=== PATIENT | female | born 1940 | race Caucasian/White ===

== ENCOUNTER → 2016-12-03 | Outpatient (CLI) | payer MEDICARE, BC ==
[2016-12-03 12:06] LABS: Blood Urea Nitrogen 21 mg/dL (7-17); Non-African American GFR(MDRD) >60 (>60 ml/min/1.73 sqM)
--- NOTE | 2016-12-03 14:19 | CT ---
EXAMINATION TYPE: CT ChestAbdPelvis w con DATE OF EXAM: 12/03/2016 1:13 PM COMPARISON: CT CAP September 03, 2016 HISTORY: Ovarian CA progress study. CT DLP: 1028.1 mGycm. Automated Exposure Control for Dose Reduction was Utilized. CONTRAST: CT scan of the thorax, abdomen and pelvis is performed with oral and with IV Contrast, patient inject ed with 100 mL of Omnipaque 300. FINDINGS: LUNGS: The lungs are grossly clear, there is no new concerning parenchymal mass or nodule identified. There is bibasilar linear scarring redemonstrated. There is no pleural effusion or pneumothorax see n. The tracheobronchial tree is patent. MEDIASTINUM: There are no greater than 1 cm noncalcified hilar or mediastinal lymph nodes. There are stable calcified subcentimeter subcarinal lymph nodes noted. No pericardial effusion is seen. Hear t size is stable and upper limits of normal. Coronary artery calcification is redemonstrated. OTHER: No additional significant abnormality is seen. LIVER/GB: No significant abnormality is appreciated. PANCREAS: No significant abnormality is seen. SPLEEN: No significant abnormality is seen. ADRENALS: No significant abnormality is seen. KIDNEYS: Nondependent air in bladder is presumed product of recent Samson catheterization, clinical co rrelation advised otherwise other etiologies such as fistula or gas-forming infection need to be cons idered. Small calculi inferiorly in bladder are redemonstrated. BOWEL: There is stable small to moderate size hiatal hernia. With oral contrast reaches level of the hepatic flexure making evaluation of distal bowel slightly suboptimal. No suspicious small or large b owel dilatation is seen. GENITAL ORGANS: Uterus is surgically absent. LYMPH NODES: There is new enlarged soft tissue lesion corresponding to the cystic 1.4 cm lesion of co ncern left adnexa on prior study, it measures 3.4 x 2.4 cm on current study. It is along the inferior aspect of the left ovarian vein. In postmenopausal female local recurrence or adenopathy is strongly suspected. OSSEOUS STRUCTURES: Metallic hardware from right hip arthroplasty is redemonstrated and felt stable c ausing streak artifact limiting evaluation of pelvic structures. S-shaped scoliosis is again seen. Mi ld to moderate late subacute or chronic compression fracture superior L2 endplate is redemonstrated. Moderate multilevel spurring of thoracolumbar spine is again seen. Spinal canal stenosis L1-L2 level on axial image 60 is stable. OTHER: No significant additional abnormality is seen. IMPRESSION: 1. Enlarging left adnexal/pelvic lesion strongly suspicious for local neoplastic recurrence.
== END ==
LOC: RADCTMAIN 11:01
PROVIDERS: ATTEND Internal Medicine Hematology & Oncology
DX: Z03.89 Encounter for observation for other suspected diseases and conditions ruled out (principal); N94.9 Unspecified condition associated with female genital organs and menstrual cycle; C56.2 Malignant neoplasm of left ovary; Z88.1 Allergy status to other antibiotic agents
CPT/HCPCS: 82565; 84520; 71260; 74177; 36415; Q9967

== ENCOUNTER → 2017-08-13 | Outpatient (CLI) | payer MEDICARE, BC ==
[2017-08-13 11:30] LABS: Blood Urea Nitrogen 29 mg/dL (7-17); Non-African American GFR(MDRD) >60 (>60 ml/min/1.73 sqM)
--- NOTE | 2017-08-13 15:00 | CT ---
EXAMINATION TYPE: CT ChestAbdPelvis w con DATE OF EXAM: 08/13/2017 COMPARISON: Prior CT chest abdomen pelvis 12/03/2016 HISTORY: ovarian cancer CT DLP: 1142.70 mGycm Automated exposure control for dose reduction was used. CONTRAST: CT scan of the chest, abdomen and pelvis is performed with Oral Contrast and with IV Contrast, patien t injected with 100 ml mL of Omnipaque 300. FINDINGS: LUNGS: The lungs are grossly clear, there is no concerning parenchymal mass or nodule identified. T here is no pleural effusion or pneumothorax seen. The tracheobronchial tree is patent. Posterior lawson phragmatic hernias containing fat as on prior exam. There are coronary artery calcifications. MEDIASTINUM: There are no greater than 1 cm hilar or mediastinal lymph nodes. No pericardial effusi on is seen. There is a small hiatal hernia suspected. There is evidence of old granulomatous disease. AORTA: Ascending aorta is dilated as on prior exam, descending aorta is tortuous.. OTHER: No additional significant abnormality is seen. LIVER/GB: Liver shows low attenuation as on prior exam, consider hepatic steatosis, gallbladder is no rmal. PANCREAS: No significant abnormality is seen. SPLEEN: No significant abnormality is seen. ADRENALS: No significant abnormality is seen. KIDNEYS: Cystic foci are associated with the right kidney. REPRODUCTIVE ORGANS: No longer seen and there is a surgical clip in the left hemipelvis BOWEL: No significant abnormality is seen. FREE AIR: No Free Air visible. ASCITES: None seen. RETROPERITONEAL ADENOPATHY: No retroperitoneal adenopathy is seen. LYMPH NODES: No greater than 1 cm abdominal or pelvic lymph nodes are appreciated. URINARY BLADDER: No significant abnormality is seen. PELVIC ADENOPATHY: None visualized. Small umbilical hernia contains fat. OSSEOUS STRUCTURES: Wedge compression deformity at L2 is stable. Postop change noted to the right hi p which causes some streak artifact. IMPRESSION: Postop changes. Interval removal of patient's left ovary. Additional nonspecific findings above.
== END | disposition home or self-care (01) ==
LOC: RADCTMAIN 10:50
PROVIDERS: ATTEND Internal Medicine Hematology & Oncology
DX: C56.2 Malignant neoplasm of left ovary (principal); Z88.1 Allergy status to other antibiotic agents; Z98.890 Other specified postprocedural states
CPT/HCPCS: 82565; 84520; 71260; 74177; 36415; Q9967

== ENCOUNTER → 2018-03-21 | Outpatient (CLI) | payer MEDICARE, BC ==
[2018-03-21 08:21] LABS: Blood Urea Nitrogen 29 mg/dL (7-17)
--- NOTE | 2018-03-21 11:53 | CT ---
EXAMINATION TYPE: CT ChestAbdPelvis w con DATE OF EXAM: 03/21/2018 COMPARISON: CT chest abdomen and pelvis August 13, 2017 and older exams back through February 29, 2016. PET CT exam September 15, 2016. HISTORY: follow up to ovarian CA, completed chemotherapy May 2017. CT DLP: 1092.2 mGycm. Automated Exposure Control for Dose Reduction was Utilized. CONTRAST: CT scan of the thorax, abdomen and pelvis is performed with IV Contrast, patient injected with 100 mL of Isovue 300. FINDINGS: LUNGS: There is left greater than right bibasilar linear scarring and/or atelectasis redemonstrated. There is no suspicious parenchymal nodule or mass. No pleural effusion or pneumothorax is seen bilate rally. Tracheobronchial tree is patent. Small fat-containing posterior lateral Bochdalek type hernia right lung axial image 59 is redemonstrated. MEDIASTINUM: There are no greater than 1 cm noncalcified hilar or mediastinal lymph nodes. There are prominent calcified subcarinal and to lesser degree right hilar lymph nodes redemonstrated. No cardi omegaly or pericardial effusion is seen. Coronary artery calcification is redemonstrated which is no jackie marker for coronary artery disease. Ascending aorta measures up to 4.5 cm in diameter axial image 27, not significantly changed from prior study accounting for technical differences. OTHER: No additional significant abnormality is seen. LIVER/GB: No significant abnormality is appreciated. PANCREAS: No significant abnormality is seen. SPLEEN: No significant abnormality is seen. ADRENALS: No significant abnormality is seen. KIDNEYS: Subcentimeter low dense lesion posteriorly right kidney upper to mid pole level axial image 27 is too small to further characterize but presumed benign. BOWEL: Stable small hiatal hernia is present. The oral contrast reaches level of sigmoid colon. No ibanez spicious dilatation is seen. GENITAL ORGANS: Uterus is surgically absent. Surgical clips in left pelvis are redemonstrated. Ovarie s are likely surgically removed. LYMPH NODES: No greater than 1cm abdominal or pelvic lymph nodes are appreciated. OSSEOUS STRUCTURES: Metallic hardware from right hip arthroplasty causes streak artifact limiting zaira luation of pelvic structures. Osseous structures are demineralized. Mild to moderate chronic compress ion fracture L2 level is redemonstrated. There is moderate disc space narrowing with vacuum disc phen omenon L3-L4 and L4-L5 levels. There is moderate multilevel spurring in the mid thoracic spine. Sligh t S-shaped scoliosis is redemonstrated. OTHER: There is mild atherosclerotic change and ectatic course of the abdominal aorta redemonstrated. Vertical subcutaneous scar from umbilicus extends inferiorly. There is oval well-circumscribed parti ally calcified skin base 1.5 cm lesion axial image 98 favoring dermatologic benign etiology stable fr om prior. Stable tiny fat-containing umbilical hernia. IMPRESSION: Postsurgical changes to pelvis redemonstrated. No suspicious new mass or adenopathy is se en to suggest neoplastic recurrence.
== END | disposition home or self-care (01) ==
LOC: RADCTMAIN 07:46
PROVIDERS: ATTEND Internal Medicine Hematology & Oncology
DX: C56.2 Malignant neoplasm of left ovary (principal); Z98.890 Other specified postprocedural states; Z88.1 Allergy status to other antibiotic agents
CPT/HCPCS: 82565; 84520; 71260; 74177; 36415; Q9967

== ENCOUNTER 2018-05-28 06:00 | Day surgery (SDC) | payer MEDICARE, BC ==
[2018-05-26 08:29] VITALS: BMI 31.2
[~2018-05-28 06:00] MED LIST: DEXAMETHASONE SOD PHOSPHATE 10 MG/ML 1 ML VIAL IV ONE; LIDOCAINE 1% 20 ML VIAL (10MG/ML) FOR IV START INTRADERMA PRN; MIDAZOLAM 2 MG/2 ML VIAL IV PRN; ONDANSETRON 4 MG/2 ML VIAL IVP ONE; ceFAZolin IN SWFI 2 GM/20 ML SYRINGE IVP ONE; fentaNYL (PF) 50 MCG/ML 2 ML AMP IV PRN; fentaNYL (PF) 50 MCG/ML 20 ML VIAL IVP PRN
[2018-05-28] MEDS: LACTATED RINGERS 1,000 ML IV SCH ×3 (06:36→12:48)
[2018-05-28] MEDS ORDERED: HYDROmorphone (PF) 1 MG/ML ONE (07:33)
[2018-05-28] MEDS ORDERED: ePHEDrine SULFATE/0.9% NACL/PF 50 MG/5 ML SYRINGE IV ONE (07:33)
[2018-05-28] MEDS ORDERED: MIDAZOLAM 2 MG/2 ML VIAL ONE (07:33)
[2018-05-28] MEDS ORDERED: GLYCOPYRROLATE 0.2 MG/ML 2 ML VIAL ONE (07:33)
[2018-05-28] MEDS ORDERED: PROPOFOL 10 MG/ML 20 ML VIAL IV ONE (07:33)
[2018-05-28] MEDS ORDERED: LIDOCAINE 1% INJ 10MG/ML (20 ML MDV) ONE (07:33)
[2018-05-28] MEDS ORDERED: ROCURONIUM BROMIDE 10 MG/ML 10 ML VIAL IV ONE (07:33)
[2018-05-28] MEDS ORDERED: NEOSTIGMINE 1 MG/ML 10 ML VIAL ONE (07:33)
[2018-05-28] MEDS ORDERED: fentaNYL (PF) 50 MCG/ML 2 ML AMP ONE (07:33)
[2018-05-28] MEDS ORDERED: LACTATED RINGERS 1,000 ML IV ONE ×2 (09:04)
[2018-05-28] MEDS ORDERED: DIAZEPAM 5 MG TAB PO PRN (11:05)
[2018-05-28] MEDS ORDERED: NALOXONE 0.4 MG/ML 1 ML VIAL IV PRN (11:05)
[2018-05-28] MEDS ORDERED: HYDROmorphone 1 MG/ML 1 ML SYRINGE IVP PRN (11:05)
[2018-05-28] MEDS ORDERED: MAGNESIUM HYDROXIDE 2,400 MG/10 ML CUP PO PRN (11:05)
[2018-05-28] MEDS ORDERED: HYDROcodone/APAP 5-325MG 1 EACH TAB PO PRN (11:05)
[2018-05-28] MEDS ORDERED: ONDANSETRON 4 MG/2 ML VIAL IVP PRN (11:05)
--- NOTE | 2018-05-28 11:39 | P.OP ---
Date of Procedure: 05/28/18 Preoperative Diagnosis: 1. 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 Left hypermobile, recurrent hallux vaglus 3. Left Achilles tendon contracture Postoperative Diagnosis: Same Procedure(s) Performed: 1. Left double arthrodesis (left subtalar and talonavicular joint fusion) 2. Left modified Lapidus procedure 3. Left percutaneous tendo Achilles lengthening (triple hemisection) 4. Application of short-leg splint by physician, left leg Anesthesia: GETA Surgeon: Zachary Nguyen Estimated Blood Loss (ml): 50 IV fluids (ml): 1,400 Pathology: none sent Condition: stable Disposition: PACU Indications for Procedure: The patient is a previously healthy 77-year-old female who is her long-standing history of problems with her left foot. She previously had correction of a hallux valgus deformity by another provider had recurrence of her deformity. She also had a progressively worsening flatfoot deformity. She was initially managed nonsurgically with activity modification, orthotics, shoe modification, and bracing. She had increasing pain that was refractory to nonsurgical treatment and she requested surgery. Due to the patient's age and underlying degree of deformity I recommended correcting her flexible flatfoot deformity with a double arthrodesis of the subtalar and talonavicular joint and correcting her hypermobile hallux valgus with a modified Lapidus procedure. We discussed potential risks and complications of surgery including but not limited to risk of anesthesia, risk of superficial infection, risk of deep infection, risk of damage to local blood vessels or nerves, risk of nonunion of the fusion site, risk of malunion of the fusion sites, risk of under correction , risk of overcorrection, risk of recurrent deformity, risk of intraoperative fracture, risk of postoperative fracture, risk of symptomatic hardware, risk of inability to regain preinjury level of function, risk of chronic pain, risk of chronic swelling, risk of DVT, risk of PE, risk of other medical complications, risk of generalized satisfaction with surgery, and possibly loss of life or limb. The patient voiced understanding of this and provided her verbal and written consent to go forward with surgery. Description of Procedure: The patient was identified in preoperative holding and the correct left leg was marked with my initials. I reviewed the consent form with the patient and all of her questions were answered. The patient was then brought back to the operating room. She was positioned on the OR table where general anesthetic and preoperative and lateral x-ray administered. All bony prominences are well- padded. A tourniquet was applied to the proximal aspect of the left leg. A bump was placed under the left buttock internally rotating the leg to neutral. A bump was placed under the left leg to facilitate imaging. The left leg was then prepped and draped in the standard sterile fashion. Prior to starting surgery timeout was performed identifying the correct patient, operative extremity, and procedure. The patient's leg was then elevated exsanguinated with an Esmarch bandage and the tourniquet was inflated to 250 mmHg. I began by performing a [place] triple hemisection tendo Achilles lengthening. 3 stab incisions were made 2 cm apart starting just proximal to the Achilles insertion on the calcaneus. The medial fibers of the Achilles tendon were released proximally and distally in the lateral fibers of the Achilles tendon were released in the middle incision. A gentle dorsiflexion force was applied to the ankle and there was a significant increase in passive dorsiflexion. Attention was then turned the subtalar joint. A short oblique incision was marked out starting at the distal tip of the fibula extending distally in line with the fourth ray. Dissection was carried down carefully to the subcutaneous joint. The capsule the subtalar joint was exposed and opened. The posterior and middle facets of the subtalar joint were then prepared for fusion by removing articular cartilage with a series of curettes and osteotomes. The subchondral bone was perforated with a 2.5 mm drill bit help facilitate fusion. Attention was then turned to the talonavicular joint. A longitudinal incision was centered over the dorsal aspect of the foot starting just proximal to the talonavicular joint extending distally over the first tarsometatarsal joint. Dissection was carried down to the talonavicular joint which was exposed. K wires were placed and a distraction device was used to open the joint. Articular cartilage from the talar head and navicular were removed with a series of osteotomes and curettes. The joint was copiously irrigated. The exposed bone was perforated with a 2.5 mm drill bit help facilitate fusion. After both joints and prepared a were packed with a combined mixture of augment and crushed cancellous allograft. The subtalar joint was then gently reduced and held with a 625 K wire through the anterior process of the calcaneus into the talar head. The reduction was verified clinically and radiographically. I then placed K wires through the heel up into the body and neck of the talus. They were measured, drilled, countersunk, and cannulated partially threaded screws were placed across the subtalar joint generating excellent compression. The K wire was then placed percutaneously through the medial navicular tuberosity into the talus. The position of the joint and K wire was verified and then a percutaneously placed a partially threaded, cannulated 5.0 mm screw was placed generating excellent compression. I then proceeded to place two 4.0 millimeter partially threaded cannulated screws across the talonavicular joint. Next Attention was then turned to the first tarsometatarsal joint. The capsule over the first TMT joint was exposed and opened. The cartilage from the base of the first metatarsal and medial cuneiform was removed with a osteotome and curet. A small wafer of bone was removed from the lateral aspect of the medial cuneiform. The distal medial incision over the first MTP joint was opened. The joint was distracted and the lateral capsule was released. The 1-2 intermetatarsal joint space was reduced and K wires were placed across the first TMT joint to hold the reduction. A precontoured plate was applied over the dorsal aspect of the first TMT joint. Nonlocking screws were placed distally into the metatarsal. A lag screw was placed through the plate into the medial cuneiform. 2 nonlocking screws were then placed into the medial cuneiform. At this point all wounds were copiously irrigated and final fluoroscopic images were obtained. The capsule the medial first MTP joint was imbricated to help further correct the hallux valgus deformity. The capsule over the talonavicular and first tarsometatarsal joint was closed with a running 2-0 Vicryl. The capsule over the subtalar joint was closed with a running 0 Vicryl. The deep subcutaneous layer was closed with interrupted 2-0 Vicryl. The subtalar and dorsal midfoot incision were closed with amber. The medial first MTP joint and plantar heel wound were closed with nylon sutures. The tourniquet time was let down for total tourniquet time of 120 minutes. I verified that all instrument, sponge, and sharp counts were correct. Sterile dressings consisting of Betadine soaked Adaptic, 4 x 4, web roll were applied. A well-padded bulky Rico splint was placed with the ankle in neutral. The patient was then awoken from her anesthetic, transferred to a gurney, and brought to PACU of the procedure well. Plan: The patient is going to be admitted for IV antibiotics, and internal medicine consult, and discharge planning. She is to receive 2 doses of postoperative antibiotics. She is to be strictly nonweightbearing on her operative extremity. She will need DVT prophylaxis with Lovenox on the hospital and is to be discharged home on aspirin.
[2018-05-28] MEDS ORDERED: ROPIVACAINE 5 MG/ML 30 ML VIAL MISCELLANE ONE (11:57)
--- NOTE | 2018-05-28 12:58 | P.ONQ ---
Anesthesiology Proc Note - PNB - Peripheral Nerve Block Performed Left Popliteal Single Time Out Performed: Yes Procedure Start Time: 12:01 Procedure Stop Time: 12:06 Indication: Acute Post-Operative Pain, Requested by physician Specifically requested for management of pain by DrMahesh: Zachary Nguyen Sedation Type: Awake Preparation: Sterile Prep Position: Supine Catheter: None Needle Types: On-Q Needle Size: 100mm (4") Needle Gauge: 20 Technique: Ultrasound Injectate: 0.5% Ropivacaine (see comment for volume) (30cc) Blood Aspirated: No Pain Paresthesia on Injection Noted: No Resistance on Injection: Normal Events: Uneventful and Well Tolerated
--- NOTE | 2018-05-28 13:28 | P.CONS ---
History of Present Illness - Reason for Consult Consult date: 05/28/18 Medical management Requesting physician: Zachary Nguyen - Chief Complaint Adult acquired left flatfoot - History of Present Illness This is a 77-year-old female patient of Dr. Ortiz. Patient presented to the hospital for an elective left double arthrodesis, left modified Lapidus procedure and left percutaneous tendo Achilles lengthening. 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 Patient has a past known medical history of essential hypertension, hyperlipidemia and ovarian cancer. Patient denies any significant cardiac history. . Per pain services patient also has a peripheral nerve block in the left popliteal placed. Patient is currently resting comfortably in bed. Patient denies pain at this time. Patient denies chest pain or shortness of breath. Denies nausea vomiting or diarrhea. Denies any urinary burning or frequency. Review of Systems Please refer to HPI otherwise unremarkable Past Medical History Past Medical History: Cancer, Hyperlipidemia, Hypertension, Osteoarthritis (OA) Additional Past Medical History / Comment(s): URINARY LEAKAGE,ovarian cancer with chemo [id number], ovarian cancer with chemo 2016 History of Any Multi-Drug Resistant Organisms: None Reported Past Surgical History: Bladder Surgery, Hysterectomy, Joint Replacement, Orthopedic Surgery Additional Past Surgical History / Comment(s): total knee-isac, bunionectomy and hammer toe left foot, bladder suspension, coaptite injection,BLADDER SURG X 2, RT HIP REPLACEMENT Past Anesthesia/Blood Transfusion Reactions: Postoperative Nausea & Vomiting ( PONV) Smoking Status: Never smoker - Past Family History Father Family Medical History: Cancer Additional Family Medical History / Comment(s): lung Mother Family Medical History: Memory Impairment Additional Family Medical History / Comment(s): alzheimers Medications and Allergies Home Medications Medication Instructions Recorded Confirmed Type Cholecalciferol [Vitamin D3] 5,000 unit PO DAILY 08/06/14 05/26/18 History Lisinopril 40 mg PO DAILY 08/06/14 05/28/18 History Calcium Carbonate/Vitamin D3 1 tab PO DAILY 06/08/15 05/26/18 History [Calcium 600-Vit D3 400 Tablet] Allergies Allergy/AdvReac Type Severity Reaction Status Date / Time levofloxacin [From Levaquin] Allergy "IT Verified 05/26/18 08:17 BOTHERED THE BACK OF MY LEGS" Physical Exam Vitals: Vital Signs Temp Pulse Pulse Resp BP Pulse Ox 05/28/18 13:05 98.1 F 91 18 120/77 91 L 05/28/18 12:15 82 18 102/62 100 05/28/18 12:00 83 18 110/61 100 05/28/18 11:30 84 18 105/60 100 05/28/18 11:15 84 18 105/69 95 05/28/18 10:58 97.3 F L 91 14 109/72 97 05/28/18 06:35 97.7 F 76 16 142/88 95 Intake and Output 05/27/18 05/28/18 05/28/18 22:59 06:59 14:59 Intake Total 200 1600 Output Total 50 Balance 200 1550 Intake: IV 200 1600 Output: Estimated Blood Loss 50 Head normocephalic Neck supple Lungs clear to auscultation bilaterally no wheezing or crackles Heart regular rate and rhythm S1-S2, no rub or gallop Abdomen is soft nontender nondistended positive bowel sounds no hepatosplenomegaly Extremities no edema. Left leg dressing clean dry and intact Neuro alert and orientated to 3 Assessment and Plan Assessment: 1. Adult acquired flat foot deformity of the left foot. Status post left double arthrodesis, left modified Lapidus procedure and percutaneous tendo Achilles lengthening with Dr. Nguyen. Patient also had a peripheral nerve block Placed her pain services. 2. History of essential hypertension. Home medications 3. History of hyperlipidemia 4. History of ovarian cancer DVT prophylaxis Lovenox. GI prophylaxis Pepcid A.M. labs have been ordered Thank you for this consultation we will continue to follow patient throughout stay Time with Patient: Greater than 30 (Greater than 60% of the total time spent in counseling and coordination of care. I performed an examination of the patient and discussed their management with the Nurse Practitioner. I have reviewed the Nurse Practitioner's notes and agree with the documented findings and plan of care)
--- NOTE | 2018-05-28 14:49 | FL ---
Fluoroscopy HISTORY: Fusion 2 minutes 3 seconds fluoroscopy time supplied to the referring clinician. 6 intraoperative C-arm lisa ges document the procedure. See dictated report from orthopedic surgery.
--- NOTE | 2018-05-28 14:52 | XR ---
Limited left foot HISTORY: Fusion 6 intraoperative C-arm images document the procedure.
[2018-05-28] MEDS: ceFAZolin IN SWFI 2 GM/20 ML SYRINGE IVP SCH ×2 (15:09→23:41)
[2018-05-28 19:16] LABS: Basophils % (A) 0 %; Eosinophils % (A) 0 %; HCT 37.6 % (34.0-46.0); HGB 12.2 gm/dL (11.4-16.0); Lymphocytes # (A) 0.4 k/uL (1.0-4.8); Lymphocytes % (A) 6 %; MCH 32.4 pg (25.0-35.0); MCHC 32.5 g/dL (31.0-37.0); MCV 99.7 fL (80.0-100.0); Mean Platelet Volume 6.2; Monocytes # (A) 0.3 k/uL (0-1.0); Monocytes % (A) 4 %; Neutrophils # (A) 7.1 k/uL (1.3-7.7); Neutrophils % (A) 90 %; Platelet Count 201 k/uL (150-450); RBC 3.77 m/uL (3.80-5.40); RDW 12.4 % (11.5-15.5); WBC 7.9 k/uL (3.8-10.6)
[2018-05-28] MEDS ORDERED: SENNOSIDES-DOCUSATE SODIUM 1 EACH TAB PO SCH (21:00)
[2018-05-29] MEDS: HYDROcodone/APAP 5-325MG 1 EACH TAB PO PRN ×2 (05:43→12:28)
[2018-05-29 07:26] LABS: Albumin 3.3 g/dL (3.5-5.0); Calcium 8.9 mg/dL (8.4-10.2); Total Bilirubin 0.8 mg/dL (0.2-1.3)
[2018-05-29 08:17] LABS: Basophils % (A) 0 %; Eosinophils # (A) 0.1 k/uL (0-0.7); Eosinophils % (A) 1 %; HCT 37.6 % (34.0-46.0); HGB 12.1 gm/dL (11.4-16.0); Lymphocytes # (A) 1.2 k/uL (1.0-4.8); Lymphocytes % (A) 16 %; MCH 32.4 pg (25.0-35.0); MCHC 32.3 g/dL (31.0-37.0); MCV 100.5 fL (80.0-100.0); Mean Platelet Volume 7.4; Monocytes # (A) 0.9 k/uL (0-1.0); Monocytes % (A) 12 %; Neutrophils # (A) 5.1 k/uL (1.3-7.7); Neutrophils % (A) 70 %; Platelet Count 160 k/uL (150-450); RBC 3.74 m/uL (3.80-5.40); RDW 12.6 % (11.5-15.5); WBC 7.4 k/uL (3.8-10.6)
[2018-05-29] MEDS: LACTATED RINGERS 1,000 ML IV SCH ×4 (08:17→17:21)
[2018-05-29] MEDS ORDERED: CHOLECALCIFEROL 1,000 UNIT TAB PO SCH (09:00)
[2018-05-29] MEDS ORDERED: ENOXAPARIN 40 MG/0.4 ML SYRINGE SQ SCH (09:00)
[2018-05-29] MEDS ORDERED: LISINOPRIL 20 MG TAB PO SCH (09:00)
[2018-05-29] MEDS ORDERED: FAMOTIDINE 20 MG TAB PO SCH (09:00)
[2018-05-29] MEDS ORDERED: CALCIUM CARB-VIT D 500MG-200UN 1 EACH TAB PO SCH (09:00)
--- NOTE | 2018-05-29 09:40 | P.DS ---
Providers Expected date of discharge: 05/29/18 Attending physician: Zachary Nguyen Consults: 05/28/18 11:08 Consult Physician Routine Consulting Provider: Carolyn Ortiz Consult Reason/Comments: Post op medical management Do you want consulting provider notified?: Yes Primary care physician: Carolyn Ortiz - Discharge Diagnosis(es) (1) Flat foot [pes planus] (acquired), left foot Patient was admitted to the OR on 05/28/2018 to undergo, 1. Left double arthrodesis (left subtalar and talonavicular joint fusion), 2. Left modified Lapidus procedure, 3. Left percutaneous tendo Achilles lengthening (triple hemisection) 4. Application of short-leg splint by physician, left leg. She had failed conservative measures as an outpatient and desired to proceed with elective surgery after given informed consent. She underwent the above procedure which she tolerated well without complication. Postoperative hospital course has remained without complication. On day of discharge she is afebrile, vital signs stable, labs within acceptable ranges, tolerating by mouth meds and diet, voiding without difficulty, positive flatus, denies abdominal pain or calf pain , pain is controlled on oral pain medication and has no new complaints. Wound is benign, neurovascular status is intact, calf is soft and nontender, abdomen soft and nontender. Review of systems is negative for numbness, tingling, fever , chills, chest pain, shortness breath, nausea, vomiting, dizziness, headaches, slurred speech or other Current Visit: Yes Status: Acute Priority: Medium Procedures: 1. Left double arthrodesis (left subtalar and talonavicular joint fusion) 2. Left modified Lapidus procedure 3. Left percutaneous tendo Achilles lengthening (triple hemisection) 4. Application of short-leg splint by physician, left leg Patient Condition at Discharge: Good Plan - Discharge Summary Discharge Rx Participant: No New Discharge Prescriptions: New Aspirin 325 mg PO BID #60 tab Docusate [Colace] 100 mg PO BID #60 capsule HYDROcodone/APAP 7.5-325MG [Igo 7.5-325] 1 - 2 each PO Q6HR PRN #56 tab PRN Reason: Pain No Action Lisinopril 40 mg PO DAILY Cholecalciferol [Vitamin D3] 5,000 unit PO DAILY Calcium Carbonate/Vitamin D3 [Calcium 600-Vit D3 400 Tablet] 1 tab PO DAILY Discharge Medication List Cholecalciferol [Vitamin D3] 5,000 unit PO DAILY 08/06/14 [History] Lisinopril 40 mg PO DAILY 08/06/14 [History] Calcium Carbonate/Vitamin D3 [Calcium 600-Vit D3 400 Tablet] 1 tab PO DAILY 06/14 [History] Aspirin 325 mg PO BID #60 tab 05/29/18 [Rx] Docusate [Colace] 100 mg PO BID #60 capsule 05/29/18 [Rx] HYDROcodone/APAP 7.5-325MG [Igo 7.5-325] 1 - 2 each PO Q6HR PRN #56 tab [Rx] Follow up Appointment(s)/Referral(s): Zachary Nguyen MD [Medical Doctor] - 1 Week Activity/Diet/Wound Care/Special Instructions: maintain splint keep clean and dry nonweightbearing take meds as directed f/u with Dr. Nguyen elevate leg Discharge Disposition: HOME SELF-CARE
--- NOTE | 2018-05-29 10:32 | P.PN ---
Subjective Progress Note Date: 05/29/18 This is a 77-year-old female patient of Dr. Ortiz. Patient presented to the hospital for an elective left double arthrodesis, left modified Lapidus procedure and left percutaneous tendo Achilles lengthening. 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 Patient has a past known medical history of essential hypertension, hyperlipidemia and ovarian cancer. Patient denies any significant cardiac history. . Per pain services patient also has a peripheral nerve block in the left popliteal placed. Patient is currently resting comfortably in bed. Patient denies pain at this time. Patient denies chest pain or shortness of breath. Denies nausea vomiting or diarrhea. Denies any urinary burning or frequency. On 05/29/2018 patient currently alert and oriented 3 resting comfortably in bed. Patient states she is eager to go home. Patient states pain has been well -controlled. Patient denies chest pain or shortness of breath. Denies any urinary burning or frequency. Denies any nausea vomiting or diarrhea Objective - Vital Signs Vital signs: Vital Signs Temp 98.3 F 05/29/18 07:29 Pulse 85 05/29/18 07:29 Resp 14 05/29/18 07:29 BP 113/69 05/29/18 07:29 Pulse Ox 93 L 05/29/18 07:29 Intake & Output 05/28/18 05/29/18 05/29/18 18:59 06:59 18:59 Intake Total 1600 1200 Output Total 50 Balance 1550 1200 Weight 72.575 kg Intake: IV 1600 Intake, IV Titration 800 Amount Lactated Ringers 1,000 ml 800 @ 100 mls/hr IV .Q10H [facility] [place] Rx#:[id number] Oral 400 Output: Estimated Blood Loss 50 Other: Voiding Method Bedside Commode Bedside Commode Bedpan # Voids 3 # Bowel Movements 1 - Exam Head normocephalic Neck supple Lungs clear to auscultation bilaterally no wheezing or crackles Heart regular rate and rhythm S1-S2, no rub or gallop Abdomen is soft nontender nondistended positive bowel sounds no hepatosplenomegaly Extremities no edema. Left leg dressing clean dry and intact Neuro alert and orientated to 3 - Labs CBC & Chem 7: 05/29/18 06:50 05/29/18 06:50 Labs: Abnormal Lab Results - Last 24 Hours (Table) 08/05/28/18 05/29/18 Range/Units 18:55 18:55 06:50 RBC 3.77 L 3.74 L (3.80-5.40) m/uL MCV 100.5 H (80.0-100.0) fL Lymphocytes # 0.4 L (1.0-4.8) k/uL BUN (7-17) mg/dL Total Protein (6.3-8.2) g/dL Albumin (3.5-5.0) g/dL Vitamin D 25-Hydroxy 27.3 L (30.0-100.0) ng/mL 05/29/18 Range/Units 06:50 RBC (3.80-5.40) m/uL MCV (80.0-100.0) fL Lymphocytes # (1.0-4.8) k/uL BUN 19 H (7-17) mg/dL Total Protein 6.0 L (6.3-8.2) g/dL Albumin 3.3 L (3.5-5.0) g/dL Vitamin D 25-Hydroxy (30.0-100.0) ng/mL Assessment and Plan Assessment: 1. Adult acquired flat foot deformity of the left foot. Status post left double arthrodesis, left modified Lapidus procedure and percutaneous tendo Achilles lengthening with Dr. Nguyen. Patient also had a peripheral nerve block Placed her pain services. Per patient pain has been well controlled. Patient will be DC'd home on aspirin 325 twice per Ortho. 2. History of essential hypertension. Home medications 3. History of hyperlipidemia 4. History of ovarian cancer DVT prophylaxis Lovenox. GI prophylaxis Pepcid A.M. labs have been ordered. Labs reviewed Thank you for this consultation we will continue to follow patient throughout stay Anticipate discharge in the next 24 hours per Ortho team I performed an examination of the patient and discussed their management with the Nurse Practitioner. I have reviewed the Nurse Practitioner's notes and agree with the documented findings and plan of care
[2018-05-29] MEDS ORDERED: MULTIVITAMINS, THERA 1 EACH TAB PO SCH (12:00)
[2018-05-29 14:25] VITALS: BP 134/76; PULSE 97; RESP 16; TEMP 98.2
== END 2018-05-29 18:00 | disposition home or self-care (01) ==
LOC: OR 06:00 → 3SUR 10:57 → OR 05-29 18:00
PROVIDERS: ATTEND Orthopaedic Surgery
DX: M21.42 Flat foot [pes planus] (acquired), left foot (principal); M20.12 Hallux valgus (acquired), left foot; M67.02 Short Achilles tendon (acquired), left ankle; M21.612 Bunion of left foot; I10 Essential (primary) hypertension; E78.5 Hyperlipidemia, unspecified; K21.9 Gastro-esophageal reflux disease without esophagitis; E66.01 Morbid (severe) obesity due to excess calories; Z68.31 Body mass index [BMI] 31.0-31.9, adult; Z85.43 Personal history of malignant neoplasm of ovary; Z79.899 Other long term (current) drug therapy; Z88.1 Allergy status to other antibiotic agents
CPT/HCPCS: 80053; 85025 ×2; 82306; 73620; 28725; 28740; 28735; 27685; 64450; C1713 ×2; C1762; J2250; J1100; J2710; J2405; J2001; J1650; J3010; J1170; J2795; J2704; J0690

== ENCOUNTER → 2020-03-30 | Outpatient (CLI) | payer MEDICARE, BC ==
--- NOTE | 2020-03-31 11:30 | MM ---
Reason for exam: screening (asymptomatic). Last mammogram was performed 4 years and 8 months ago. History: Patient is postmenopausal and has history of ovarian cancer at age 74. Family history of breast cancer in maternal aunt. Physical Findings: A clinical breast exam by your physician is recommended on an annual basis and results should be correlated with mammographic findings. MG 3D Screening Mammo W/Cad Bilateral CC, MLO, and XCCL view(s) were taken. Prior study comparison: August 04, 2015, bilateral MG screening mammo w CAD. June 29, 2013, bilateral digital screening mammo w/CAD. The breast tissue is heterogeneously dense. This may lower the sensitivity of mammography. Stable benign calcifications. There is no discrete abnormality. No significant changes when compared with prior studies. ASSESSMENT: Benign, BI-RAD 2 RECOMMENDATION: Routine screening mammogram of both breasts in 1 year.
== END | disposition home or self-care (01) ==
LOC: RADMAMWWP 14:06
PROVIDERS: ATTEND Family Medicine
DX: Z12.31 Encounter for screening mammogram for malignant neoplasm of breast (principal)
CPT/HCPCS: 77063; 77067

== ENCOUNTER → 2020-04-08 | Outpatient (CLI) | payer MEDICARE, BC ==
[2020-04-08 16:54] LABS: African American GFR (CKD) >90 (>60 ml/min/1.73 sqM); Blood Urea Nitrogen 23 mg/dL (7-17); Non-African American GFR(CKD) 79 (>60 ml/min/1.73 sqM)
--- NOTE | 2020-04-09 07:47 | CT ---
EXAMINATION TYPE: CT abdomen pelvis w con DATE OF EXAM: 04/08/2020 COMPARISON: 03/21/2018 HISTORY: Abdominal pain and distension. CT DLP: 963 mGycm CONTRAST: CT scan of the abdomen and pelvis is performed with Oral Contrast and with IV Contrast, patient injec jackie with 100 mL of Isovue 300. FINDINGS: LUNG BASES-: No visible nodule. No infiltrate. LIVER/GB: No calcified gallstones. No space occupying hepatic lesion. Biliary tree is of normal ca liber. PANCREAS: No inflammation. No distinct mass. SPLEEN: No splenic enlargement. No lesion seen. ADRENALS: 8 mm right adrenal nodule reflects a small adenoma and is unchanged from prior study. No th ickening. KIDNEYS/BLADDER: No hydronephrosis. No nephrolithiasis. No distinct renal mass. Urinary bladder g rossly unremarkable. BOWEL: Normal appendix. Normal bowel caliber. No inflammation. GENITAL ORGANS: hysterectomy changes identified. LYMPH NODES: No greater than 1cm abdominal or pelvic lymph nodes are appreciated. AORTA: No significant abnormality. OSSEOUS STRUCTURES: Right hip prosthesis. Changes lumbar spine. OTHER: Small fat-containing umbilical hernia noted.. IMPRESSION: 1. No significant abnormality to account for the patient's symptoms.
== END | disposition home or self-care (01) ==
LOC: RADCTMAIN 16:09
PROVIDERS: ATTEND Family Medicine
DX: Z08 Encounter for follow-up examination after completed treatment for malignant neoplasm (principal); Z85.43 Personal history of malignant neoplasm of ovary
CPT/HCPCS: 82565; 84520; 74177; 36415; Q9967

== ENCOUNTER → 2021-05-18 | Outpatient (CLI) | payer MEDICARE, BC ==
--- NOTE | 2021-05-19 13:40 | MM ---
Reason for exam: screening (asymptomatic). Last mammogram was performed 1 year and 2 months ago. History: Patient is postmenopausal and has history of ovarian cancer at age 74. Family history of breast cancer in maternal aunt. Physical Findings: A clinical breast exam by your physician is recommended on an annual basis and results should be correlated with mammographic findings. MG 3D Screening Mammo W/Cad Bilateral CC and MLO view(s) were taken. Prior study comparison: March 30, 2020, bilateral MG 3d screening mammo w/cad. August 04, 2015, bilateral MG screening mammo w CAD. There are scattered fibroglandular densities. There are benign appearing round vascular calcifications bilaterally. There is no discrete abnormality. ASSESSMENT: Benign, BI-RAD 2 RECOMMENDATION: Routine screening mammogram of both breasts in 1 year.
== END | disposition home or self-care (01) ==
LOC: RADMAMWWP 14:27
PROVIDERS: ATTEND Physician Assistant Medical
DX: Z12.31 Encounter for screening mammogram for malignant neoplasm of breast (principal); Z78.0 Asymptomatic menopausal state; Z80.3 Family history of malignant neoplasm of breast
CPT/HCPCS: 77063; 77067

== ENCOUNTER → 2021-08-29 | Outpatient (CLI) | payer MEDICARE, BC ==
[2021-08-29 12:49] LABS: Basophils % (A) 0 %; Eosinophils # (A) 0.1 k/uL (0-0.7); Eosinophils % (A) 1 %; HCT 45.5 % (34.0-46.0); HGB 15.2 gm/dL (11.4-16.0); Lymphocytes # (A) 1.1 k/uL (1.0-4.8); Lymphocytes % (A) 17 %; MCH 32.4 pg (25.0-35.0); MCHC 33.4 g/dL (31.0-37.0); MCV 96.9 fL (80.0-100.0); Mean Platelet Volume 7.5; Monocytes # (A) 0.5 k/uL (0-1.0); Monocytes % (A) 8 %; Neutrophils # (A) 4.6 k/uL (1.3-7.7); Neutrophils % (A) 72 %; Platelet Count 234 k/uL (150-450); RDW 12.8 % (11.5-15.5); WBC 6.3 k/uL (3.8-10.6)
[2021-08-29 13:07] LABS: Calcium 9.9 mg/dL (8.4-10.2); Potassium 4.7 mmol/L (3.5-5.1)
== END | disposition home or self-care (01) ==
LOC: LABPAT 10:45
PROVIDERS: ATTEND Urology
DX: Z01.812 Encounter for preprocedural laboratory examination (principal); N39.3 Stress incontinence (female) (male); N36.42 Intrinsic sphincter deficiency (ISD)
CPT/HCPCS: 80048; 85025

== ENCOUNTER 2021-09-07 08:01 | Day surgery (SDC) | payer MEDICARE, BC ==
[2021-09-05 11:46] VITALS: BMI 30.2
--- NOTE | 2021-09-06 16:31 | P.GSHP ---
History of Present Illness H&P Date: 09/04/21 Chief Complaint: Urinary incontinence The patient is a 80-year-old white female who has undergone multiple anti- incontinence procedures in the past. She underwent a pubovaginal sling in 2001, a TOT sling in 2010, and Coaptite injections in 2012. She had excellent continence following the Coaptite injections, but her stress incontinence has recurred the past several years and she now requires 3 pads daily. Examination reveals a grade 2 cystocele with no urethral hypermobility. - Cardiovascular Cardiovascular: Reports high blood pressure - Genitourinary (Female) Genitourinary: Reports dysuria, Reports hematuria, Reports stress incontinence Past Medical History Past Medical History: Cancer, Hyperlipidemia, Hypertension, Osteoarthritis (OA) Additional Past Medical History / Comment(s): URINARY LEAKAGE,ovarian cancer with chemo [id number], ovarian cancer with chemo 2016 History of Any Multi-Drug Resistant Organisms: None Reported Past Surgical History: Bladder Surgery, Hysterectomy, Joint Replacement, Orthopedic Surgery Additional Past Surgical History / Comment(s): total knee-isac, bunionectomy and hammer toe left foot, bladder suspension, coaptite injection,BLADDER SURG X 2,RT HIP REPLACEMENT Past Anesthesia/Blood Transfusion Reactions: Postoperative Nausea & Vomiting (PONV) Past Psychological History: No Psychological Hx Reported Past Alcohol Use History: None Reported Past Drug Use History: None Reported - Past Family History Father Family Medical History: Cancer Additional Family Medical History / Comment(s): lung Mother Family Medical History: Memory Impairment Additional Family Medical History / Comment(s): alzheimers Medications and Allergies Home Medications Medication Instructions Recorded Confirmed Type Cholecalciferol [Vitamin D3 (25 2,000 unit PO DAILY 08/06/14 09/05/21 History Mcg = 1000 Iu)] Rosuvastatin Calcium [Crestor] 10 mg PO W/SUPPER 09/05/21 09/05/21 History lisinopriL [Zestril] 10 mg PO DAILY 09/05/21 09/05/21 History Allergies Allergy/AdvReac Type Severity Reaction Status Date / Time acetaminophen [From [place]] Allergy dizziness Verified 09/05/21 11:37 hydrocodone [From [place]] Allergy dizziness Verified 09/05/21 11:37 levofloxacin [From Levaquin] Allergy "IT Verified 09/05/21 11:37 BOTHERED THE BACK OF MY LEGS" Surgical - Exam - General well developed, well nourished, no distress - Neck no masses, trachea midline - Respiratory normal respiratory effort - Abdomen Abdomen: soft, non tender, no guarding, no rigid, no rebound - Genitourinary normal external genitalia, other (Normal urethral meatus. Grade 2 cystocele. No rectocele. No urethral hypermobility.) - Psychiatric oriented to time, oriented to person, oriented to place, speech is normal, memory intact Assessment and Plan (1) Stress incontinence (female) (male) Status: Acute Code(s): N39.3 - STRESS INCONTINENCE (FEMALE) (MALE) SNOMED Code(s): 65125452 (2) Intrinsic sphincter deficiency (ISD) Status: Acute Code(s): N36.42 - INTRINSIC SPHINCTER DEFICIENCY (ISD) SNOMED Code(s): 43647281158869 Plan: The patient appears to have recurrent stress urinary incontinence due to intrinsic sphincter deficiency. She previously had an excellent response to Coaptite injections and comes for this to be repeated. She understands potential risks to include anesthesia, bleeding, infection, persistent incontinence, and increased incontinence.
[2021-09-07] MEDS ORDERED: LACTATED RINGERS 1,000 ML IV ONE (08:43)
[2021-09-07] MEDS ORDERED: ONDANSETRON 4 MG/2 ML VIAL ONE (08:44)
[2021-09-07] MEDS ORDERED: DEXAMETHASONE SOD PHOSPHATE 4 MG/ML 1 ML VIAL IV ONE (08:47)
[2021-09-07] MEDS ORDERED: ONDANSETRON 4 MG/2 ML VIAL IVP ONE (08:48)
[2021-09-07] MEDS ORDERED: PROPOFOL 10 MG/ML 20 ML VIAL IV ONE (10:05)
[2021-09-07] MEDS ORDERED: MIDAZOLAM 2 MG/2 ML VIAL ONE (10:05)
[2021-09-07] MEDS ORDERED: LIDOCAINE 1% INJ 10MG/ML (20 ML MDV) ONE (10:05)
[2021-09-07] MEDS ORDERED: .fentaNYL (PF) 50 MCG/ML 2 ML AMP ONE (10:05)
[2021-09-07] MEDS ORDERED: SUCCINYLCHOLINE CHLORIDE 100 MG/5 ML SYR IV ONE (10:05)
--- NOTE | 2021-09-07 10:51 | P.OP ---
Date of Procedure: 09/07/21 Preoperative Diagnosis: Stress urinary incontinence, intrinsic sphincter deficiency Postoperative Diagnosis: Same Procedure(s) Performed: Cystoscopy with Coaptite injections Anesthesia: ELMO Surgeon: Shalom Gleason Estimated Blood Loss (ml): 0 IV fluids (ml): 200 Pathology: none sent Condition: stable Disposition: PACU Indications for Procedure: The patient is a 80-year-old white female who has undergone multiple anti- incontinence procedures in the past. She underwent a pubovaginal sling in 2001, a TOT sling in 2010, and Coaptite injections in 2012. She had excellent continence following the Coaptite injections, but her stress incontinence has recurred the past several years and she now requires 3 pads daily. Examination reveals a grade 2 cystocele with no urethral hypermobility. Operative Findings: Excellent coaptation achieved by injecting Coaptite into the left lateral and left anterolateral urethral wall. Description of Procedure: The patient was taken to the operating room and placed in the dorsolithotomy position, with her legs supported in Demond stirrups. The external genitalia was prepped and draped sterilely. The 30 lens was used to introduce the 19-Serbian start cystoscopic sheath through the urethra and into the bladder under direct vision. The urethra was unremarkable. The bladder was examined in its entirety. Both ureteral orifices were normal anatomic location and configuration, and clear urine effluxed from both. No tumors or foreign bodies were seen. The long transurethral needle was passed through a 20-Serbian sheath specially designed for injection. The cystoscope was advanced to the level of the mid urethra. The needle was then advanced such that a perforated the mucosa, and it was then advanced within the submucosal plane to the level of the proximal urethra. Coaptite was injected in 2 sites, left lateral and left anterolateral. A total of 2 syringes were injected. Very good coaptation of the proximal urethra was achieved. The bladder was drained, and the procedure was terminated. The patient tolerated the procedure well was taken to the recovery room in stable condition.
[2021-09-07 10:58] VITALS: TEMP 97.8
[2021-09-07 11:06] VITALS: RESP 16
[2021-09-07 12:02] VITALS: BP 158/92; PULSE 89
== END 2021-09-07 12:17 | disposition home or self-care (01) ==
LOC: OR 08:01
PROVIDERS: ATTEND Urology
DX: N39.3 Stress incontinence (female) (male) (principal); N36.42 Intrinsic sphincter deficiency (ISD); E78.5 Hyperlipidemia, unspecified; I10 Essential (primary) hypertension; M19.90 Unspecified osteoarthritis, unspecified site; Z85.43 Personal history of malignant neoplasm of ovary; Z92.21 Personal history of antineoplastic chemotherapy; Z90.710 Acquired absence of both cervix and uterus; Z96.641 Presence of right artificial hip joint; Z98.890 Other specified postprocedural states; Z80.1 Family history of malignant neoplasm of trachea, bronchus and lung; Z81.8 Family history of other mental and behavioral disorders; Z88.6 Allergy status to analgesic agent; Z88.1 Allergy status to other antibiotic agents; Z88.5 Allergy status to narcotic agent
CPT/HCPCS: 51715; L8606; J2250; J1100; J2405; J0690; J2001; J3010; J0330; J2704

== ENCOUNTER → 2021-12-07 | Outpatient (CLI) | payer MEDICARE ==
[2021-12-07 19:35] LABS: HCT 44.9 % (37.2-46.3); HGB 14.2 g/dL (12.0-15.0); MCH 31.3 pg (27.0-32.0); MCHC 31.6 g/dL (32.0-37.0); MCV 99.1 fL (80.0-97.0); Mean Platelet Volume 10.4 fL (9.5-12.2); NRBC Per 100 WBC 0 /100 WBCS (0.0-0.0); Platelet Count 218 X 10*3/uL (140-440); RBC 4.53 X 10*6/uL (4.10-5.20); WBC 5.01 X 10*3/uL (4.50-10.00)
[2021-12-07 23:13] LABS: ALT 14 U/L (8-44); AST 25 U/L (13-35); African American GFR (CKD) 77.3 (60.0-200.0); Albumin 4.4 g/dL (3.8-4.9); Albumin/Globulin Ratio 1.52 (1.60-3.17); Alkaline Phosphatase 85 U/L (41-126); Blood Urea Nitrogen 21.8 mg/dL (9.0-27.0); Calcium 9.6 mg/dL (8.7-10.3); Carbon Dioxide 22.9 mmol/L (20.0-27.5); Chloride 102 mmol/L (96-109); Chol/HDL Ratio 2.35 Ratio; Globulin 2.9 g/dL (1.6-3.3); Glucose 82 mg/dL (70-110); LDL Cholesterol,Calculated 59.1 mg/dL (0.0-131.0); Non-African American GFR(CKD) 66.7 (60.0-200.0); Sodium 141 mmol/L (135-145); Total Protein 7.3 g/dL (6.2-8.2)
== END | disposition home or self-care (01) ==
LOC: LABWHC1 10:49
PROVIDERS: ATTEND Physician Assistant Medical
DX: I10 Essential (primary) hypertension (principal); E78.5 Hyperlipidemia, unspecified
CPT/HCPCS: 36415; 80053; 80061; 84443; 85027

== ENCOUNTER 2025-03-23 11:20 | Day surgery (SDC) | payer MEDICARE ==
[2025-03-19 11:26] VITALS: BMI 27.3
[~2025-03-23 11:20] MED LIST changes: -DEXAMETHASONE SOD PHOSPHATE 10 MG/ML 1 ML VIAL IV ONE; +LIDOCAINE 1% (10MG/ML) FOR IV START INTRADERMA PRN; -LIDOCAINE 1% 20 ML VIAL (10MG/ML) FOR IV START INTRADERMA PRN; -MIDAZOLAM 2 MG/2 ML VIAL IV PRN; -ONDANSETRON 4 MG/2 ML VIAL IVP ONE; -ceFAZolin IN SWFI 2 GM/20 ML SYRINGE IVP ONE; -fentaNYL (PF) 50 MCG/ML 2 ML AMP IV PRN; -fentaNYL (PF) 50 MCG/ML 20 ML VIAL IVP PRN
[2025-03-23 11:44] VITALS: TEMP 97.1
[2025-03-23] MEDS: LACTATED RINGERS 1,000 ML IV SCH (11:49)
[2025-03-23] MEDS: IV FLUID CONTINUATION 1,000 ML IV ONE ×2 (11:50→12:10)
[2025-03-23] MEDS ORDERED: PROPOFOL 10 MG/ML 20 ML VIAL IV ONE (12:11)
--- NOTE | 2025-03-23 12:15 | P.GSHP ---
History of Present Illness H&P Date: 03/23/25 Chief Complaint: Change in bowel habits 84-year-old female here for colonoscopy. Last colonoscopy 5 to 10 years ago she thinks. She thinks it was normal. No family history of colon cancer. Over the last few months she has had worsening constipation. No rectal bleeding. Past Medical History Past Medical History: Cancer, Hyperlipidemia, Hypertension, Osteoarthritis (OA) Additional Past Medical History / Comment(s): ovarian cancer with chemo 2014- 2015, ovarian cancer with chemo 2016 History of Any Multi-Drug Resistant Organisms: None Reported Past Surgical History: Bladder Surgery, Hysterectomy, Joint Replacement, Orthopedic Surgery Additional Past Surgical History / Comment(s): total knee-isac, bunionectomy and hammer toe left foot, bladder surgery x2, coaptite injection, RT HIP REPLACEMENT Past Anesthesia/Blood Transfusion Reactions: Postoperative Nausea & Vomiting (PONV) Past Psychological History: No Psychological Hx Reported Smoking Status: Never smoker Past Alcohol Use History: None Reported Past Drug Use History: None Reported - Past Family History Father Family Medical History: Cancer Additional Family Medical History / Comment(s): lung Mother Family Medical History: Memory Impairment Additional Family Medical History / Comment(s): alzheimers Medications and Allergies Home Medications Medication Instructions Recorded Confirmed Type Rosuvastatin Calcium [Crestor] 10 mg PO W/SUPPER 09/05/21 03/23/25 History lisinopriL 40 mg PO DAILY 03/19/25 03/23/25 History Allergies Allergy/AdvReac Type Severity Reaction Status Date / Time acetaminophen [From [place]] Allergy dizziness Verified 03/23/25 11:33 hydrocodone [From [place]] Allergy dizziness Verified 03/23/25 11:33 levofloxacin [From Levaquin] Allergy "IT Verified 03/23/25 11:33 BOTHERED THE BACK OF MY LEGS" Surgical - Exam Vital Signs Temp Pulse Resp BP Pulse Ox 97.1 F L 87 17 123/80 97 03/23/25 11:42 03/23/25 11:42 03/23/25 11:42 03/23/25 11:42 03/23/25 11:42 Physical exam: General: Well-developed, well-nourished HEENT: Normocephalic, sclerae nonicteric Abdomen: Nontender, nondistended Extremities: No edema Neuro: Alert and oriented Assessment and Plan (1) Change in bowel habits Narrative/Plan: Will proceed with colonoscopy at this time. Current Visit: Yes Status: Acute Code(s): R19.4 - CHANGE IN BOWEL HABIT SNOMED Code(s): 53047637
--- NOTE | 2025-03-23 12:46 | P.PCN ---
Date of Procedure: 03/23/25 Procedure(s) Performed: PREOPERATIVE DIAGNOSIS: Change in bowel habits POSTOPERATIVE DIAGNOSIS: Tortuous sigmoid with diverticulosis, unable to pass sigmoid colon PROCEDURE: Colonoscopy to the sigmoid colon ANESTHESIA: MAC SURGEON: Mervin Garcia M.D. SPECIMENS: None ENDOSCOPIC PROCEDURE: The patient was placed on the endoscopy table in the left decubitus position. The Olympus colonoscope was inserted into the anus and passed under direct visualization to the mid to proximal sigmoid colon. The patient had significant tortuosity and some degree of luminal narrowing and non- distensibility. No neoplastic changes were seen. Despite multiple attempts we were unable to navigate proximal to that. The scope was withdrawn. The patient had diverticulosis in the sigmoid colon. The rectum appeared normal. Digital rectal examination was normal. The patient was taken to the recovery room in stable condition per anesthesia guidelines. RECOMMENDATIONS: Continue clear liquids. Will discuss findings with patient. Recommend barium enema which will hopefully be arranged for tomorrow.
[2025-03-23 12:50] VITALS: RESP 14
[2025-03-23 13:21] VITALS: BP 111/67; PULSE 71
== END 2025-03-23 13:45 | disposition home or self-care (01) ==
LOC: ORWHC2ENDO 11:20
PROVIDERS: ATTEND Surgery
DX: K57.30 Diverticulosis of large intestine without perforation or abscess without bleeding (principal); I10 Essential (primary) hypertension; E78.5 Hyperlipidemia, unspecified; M19.90 Unspecified osteoarthritis, unspecified site; Z85.43 Personal history of malignant neoplasm of ovary; Z88.1 Allergy status to other antibiotic agents; Z88.5 Allergy status to narcotic agent; Z90.710 Acquired absence of both cervix and uterus
CPT/HCPCS: 45330; J2704

== ENCOUNTER → 2025-03-24 | Outpatient (CLI) | payer MEDICARE ==
--- NOTE | 2025-03-24 13:35 | FL ---
EXAMINATION TYPE: FL barium enema DATE OF EXAM: 03/24/2025 11:39 AM CLINICAL INDICATION:Female, 84 years old with history of Z53.9 PROCEDURE TREATMENT NOT CARRIED OUT; COMPARISON: 01/14/2013 TECHNIQUE: The procedure was explained and patient history elicited. All patient questions were answ ered prior to beginning. Multiple spot fluoroscopic images of the colon were obtained after the recta l administration of liquid barium as the contrast agent. Multiple postprocedural overhead images, w ere obtained and reviewed. DAP: NOT REPORTED [id number] FINDINGS: The environmental studies professor abdominal radiograph demonstrates a normal bowel gas pattern without dilated loo ps of small or large bowel. There is no evidence for organomegaly or pneumoperitoneum. No abnormal calcifications. The visualized osseous structures are intact. The colon demonstrates normal course and contour without evidence of focal stricture or internal robin ling defects. A few scattered colonic diverticula. Views of the cecum are unremarkable. Postevacuation images are unremarkable. IMPRESSION: 1. No evidence for abnormal stricture or mass lesion. 2. Few scattered colonic diverticula. [facility], , 03/24/2025 1:33 PM
== END | disposition home or self-care (01) ==
LOC: RADFLMAIN 08:11
PROVIDERS: ATTEND Surgery
DX: K57.30 Diverticulosis of large intestine without perforation or abscess without bleeding (principal)
CPT/HCPCS: 74270

== ENCOUNTER → 2025-04-16 | Outpatient (CLI) | payer MEDICARE ==
--- NOTE | 2025-04-19 20:39 | MR ---
EXAMINATION TYPE: MR abdomen wo/w con DATE OF EXAM: 04/16/2025 8:48 AM COMPARISON: 11/19/2024, 03/21/2018 CLINICAL INDICATION: Female, 84 years old with history of D41.01 renal mass; PHH, Renal Mass TECHNIQUE: Multiplanar multi-sequence imaging was performed without contrast. Post contrast imaging was performed. Post IV contrast subtraction images were also submitted for review. IV Contrast: 6 mL Gadobutrol FINDINGS: LOWER CHEST: No gross irregularity. Possible ascending thoracic aorta aneurysm ABDOMEN Liver: No evidence for hepatic steatosis or cirrhosis. Gallbladder and Bile ducts: No evidence for ductal dilation, or biliary stricture or evidence of chol edocholithiasis. The gallbladder is within normal limits. The common duct measures up to 7 mm which i s within normal limits for patient's age. The common hepatic duct measures up to 7 mm which is within normal limits for patient's age. The gallbladder is suboptimally visualized due to motion. Pancreas: No ductal dilation. No evidence for solid mass. Spleen: Normal for size. Adrenal glands: Unremarkable. Kidneys: Extensive motion limits evaluation. No evidence for obstructive uropathy. No suspicious shilo l masses. Multiple high T2 low T1 signal renal cortical cysts are seen bilaterally measuring up to 21 mm on the right and 7 mm on the left. Motion makes the postcontrast exam nearly nondiagnostic. CT sh ould be performed for follow-up imaging. Stomach and Bowel: No evidence for bowel wall thickening or evidence for obstruction. Scattered colon ic diverticula. Retroperitoneum/Peritoneum: No evidence of pneumoperitoneum or free fluid. Vasculature: No aortic aneurysm. Musculoskeletal: The osseous structures appear intact. Right hip arthroplasty with susceptibility art ifact. Scoliosis changes of the spine Lymph Nodes: No gross evidence for lymphadenopathy. Abdominal wall: Unremarkable. IMPRESSION: 1. Motion limited exam on postcontrast imaging and subtraction imaging. Extremely limits evaluation. No obvious solid mass identified within the kidneys. Renal simple appearing and cysts identified isac aterally. Consider follow-up CT imaging for stability in 6 months with IV contrast renal mass protoco l. 2. 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 Previously up to 4.6 cm on 03/01 exam Consider complete evaluation of the thorax CT angiogram. 3. Scoliosis changes of the spine. 4. Colonic diverticulosis. 5. Biliary dilation within normal limits for patient's age. [place] [facility], , 04/19/2025 8:37 PM
== END | disposition home or self-care (01) ==
LOC: RADMRIMAIN 07:50
PROVIDERS: ATTEND Urology
DX: D41.01 Neoplasm of uncertain behavior of right kidney (principal); M41.9 Scoliosis, unspecified; K57.30 Diverticulosis of large intestine without perforation or abscess without bleeding
CPT/HCPCS: 74183; A9585